=== PATIENT | male | born 1955 | race Two or more races ===

== ENCOUNTER 2024-12-01 22:05 | Emergency (ER) | payer OTHER ==
[~2024-12-01] VITALS: Ht 177.8 cm; Wt 91.0 kg
--- NOTE | 2024-12-01 23:53 | DVH ---
EXAMINATION: XY R RIB XRAY INDICATION: right rib pain COMPARISON: None TECHNIQUE: Frontal view of the chest and 2 views of the right ribs history FINDINGS/ IMPRESSION: Mildly displaced acute traumatic fracture of the right 7th lateral rib. No pneumothorax.
[2024-12-02] MEDS ORDERED: ACE3T PO ×2 (00:11→00:12)
--- NOTE | 2024-12-02 00:14 | ED.PDOC ---
Back pain HPI HPI Comments 69-year-old male presents to ER with complaints of right rib pain x2 days. Patient presents via EMS, reporting that he slipped on water while walking 2 days ago and landed on his right side onto cement and has since been experiencing 10/10 right sided rib pain. Denies head injury/LOC. Denies use of medications for current symptoms and presents to ER in no distress with vitals stable. Denies shortness of breath, chest pain, nausea/vomiting, skin changes, abdominal pain or any further symptoms/complaints Chief Complaint: Fall Injury Time Seen by MD: 22:36 Primary Care Provider: UNKNOWN Reviewed Notes: Nurses Notes, Medications, Allergies Allergies: Coded Allergies: NO KNOWN ALLERGIES (Unverified , 12/02/24) Home Meds Active Scripts Acetaminophen W/ Codeine (Tylenol W/Cod #3) 1 Tab Tb, 1 TAB PO Q6HPRN, #10 TAB 0 Refills Prov:ANGIE LAL 12/02/24 Information Source: Patient Mode of Arrival: EMS Past Medical History PAST MEDICAL HISTORY: CVA, High Lipids, HTN Past Medical History (Other): 2015- TBI Surgical History: Denies all surgeries Family History Family History: Unknown Social History Smoker: Non-Smoker Alcohol: Denies ETOH Use Drugs: Denies Drug Use Lives In: Home Constitutional: denies: chills, diaphoresis, fatigue, fever, malaise, sweats, weakness, others EENTM: denies: blurred vision, double vision, ear bleeding, ear discharge, ear drainage, ear pain, ear ringing, eye pain, eye redness, hearing loss, mouth pain, mouth swelling, nasal discharge, nose bleeding, nose congestion, nose pain, photophobia, tearing, throat pain, throat swelling, voice changes, others Respiratory: denies: cough, hemoptysis, orthopnea, SOB at rest, shortness of breath, SOB with excertion, stridor, wheezing, others Cardiovascular: denies: chest pain, dizzy spells, diaphoresis, Dyspnea on exertion, edema, irregular heart beat, left arm pain, lightheadedness, palpitations, PND, syncope, others Gastrointestinal: denies: abdomen distended, abdominal pain, blood streaked bowels, constipated, diarrhea, dysphagia, difficulty swallowing, hematemesis, melena, nausea, poor appetite, poor fluid intake, rectal bleeding, rectal pain, vomiting, others Genitourinary: denies: burning, dysuria, flank pain, frequency, hematuria, incontinence, penile discharge, penile sore, pain, testicle pain, testicle swelling, urgency, others Neurological: denies: dizziness, fainting, headache, left sided numbness, left sided weakness, numbness, paresthesia, pre-existing deficit, right sided numbness, right sided weakness, seizure, speech problems, tingling, tremors, weakness, others Musculoskeletal: reports: others (As stated in HPI) Integumetry: denies: bruises, change in color, change in hair/nails, dryness, laceration, lesions, lumps, rash, wounds, others Allergic/Immunocompromised: denies: Difficulty Healing, Frequent Infections, Hives, Itching, others Hematologic/Lymphatic: denies: anemia, blood clots, easy bleeding, easy bruising, swollen glands, others Endocrine: denies: excessive hunger, excessive sweating, excessive thirst, excessive urination, flushing, intolerance to cold, intolerance to heat, unexplained weight gain, unexplained weight loss, others Psychiatric: denies: anxiety, bipolar disorder, depression, hopeless, panic disorder, schizophrenia, sleepless, suicidal, others Physical Exam General Appearance: No Apparent Distress HEENT: Normal ENT Inspection, PERRL/EOMI, Pharynx Normal, TMs Normal Neck: Full Range of Motion, Non-Tender, Normal Respiratory: Lungs Clear, No Accessory Muscle Use, No Respiratory Distress, Normal Breath Sounds, Other (TTP to region of right lateral 7th rib noted. No crepitus/flail chest/skin changes noted) Cardiovascular: No Murmur, No Gallop, Regular Rate/Rhythm Breast Exam: Deferred Gastrointestinal: Non Tender, No Pulsatile Mass, Soft Genitalia: Deferred Pelvic: Deferred Rectal: Deferred Extremities: Normal capillary refill, Normal range of motion Neurologic: Alert, No Motor Deficits, Normal Affect, Normal Mood, No Sensory Deficits Cerebellar Function: Normal Reflexes: Normal Skin: Dry, Normal Color, Warm Peripheral Pulses: 2+ carotid (R), 2+ carotid (L), 2+ Radial (R), 2+ Radial (L), 2+ Brachial (R), 2+ Brachial (L) Lymphatic: No Adenopathy Was a procedure done? Was a procedure done?: No Sedation Sedation?: No Back Pain Differential Dx Differential Diagnosis: Fracture, Other (Pneumothorax, [place]) X-Ray, Labs, Meds, VS Vital Signs Date Time Temp Pulse Resp B/P (MAP) Pulse Ox O2 Delivery O2 Flow Rate FiO2 12/01/24 22:25 98.2 76 18 129/78 (95) 100 98.2 Current Medications Medications (Trade) Dose Ordered Sig/Julián Route Start Time Stop Time Status Last Admin Acetaminophen/ Hydrocodone Bitart ([place] 10/325MG Tab) 1 tab ONCE ONCE PO 12/01/24 23:00 12/01/24 23:01 DC 12/02/24 00:34 Ondansetron HCl (Zofran Po) 4 mg ONCE ONCE PO 12/01/24 23:00 12/01/24 23:01 DC 12/02/24 00:33 PATIENT: JORDANA CERVANTES ACCT: [id number] UNIT: [id number] : 1955 LOC: ER ROOM / BED: / AGE / SEX: 69 / M ADM STATUS: REG ER SERVICE 35 ORDERING PHYSICIAN: ANGIE LAL PROCEDURE(s): RRIBS - R RIB XRAY REASON: right rib pain ORDER NUMBER(s): [id number], ACCESSION NUMBER(s): [id number] EXAMINATION: XY R RIB XRAY INDICATION: right rib pain COMPARISON: None TECHNIQUE: Frontal view of the chest and 2 views of the right ribs history FINDINGS/ IMPRESSION: Mildly displaced acute traumatic fracture of the right 7th lateral rib. No pneumothorax. ATED BY: JOSE THOMSON MD DICTATED DATE/TIME: 12/01/242350 SIGNED BY: JOSE THOMSON MD SIGNED DATE/TIME: 12/01/242350 CC: Right rib x-ray reviewed [place] 10/325 mg p.o. ordered Zofran 4 mg p.o. ordered Patient denied any shortness of breath/chest pain during ER visit, reported improvement in symptoms, able to cough/clear secretions and in no distress prior to discharge Advised on rest/ no strenuous activity Advised to follow up with PCP in 1-2 days Patient verbalized understanding and agreeable with current plan of care Advised to return to ER immediately if symptoms worsen Images Reviewed?: Images reviewed and evaluated by me Time of 1ST Reevaluation: 22:36 Reevaluation 1ST: N/A Patient Education/Counseling: Diagnosis, Treatment, Prognosis, Need For Follow Up Family Education/Counseling: No Family Present SEPSIS Sepsis Screen Date sepsis recognized/suspect: Dec 01, 2024 Time Sepsis recognized/suspect: 2209 Recent Procedure: No On Antibiotic Therapy: No Respiratory Rate >20: No Heart Rate >90: No Temp<36 C (96.8 F) or >38.3 C: No SBP <90 or MAP <65 mmHG: No New Acute Mental Status Change: No Is the patient on CPAP, BIPAP,: No Physician Orders R Rib Xray (12/01/24 22:36) Vital Signs Date Time Temp Pulse Resp B/P (MAP) Pulse Ox O2 Delivery O2 Flow Rate FiO2 12/01/24 22:25 98.2 76 18 129/78 (95) 100 98.2 Medications Medications Dose Ordered Sig/Julián Route Start Time Stop Time Status Last Admin Dose Admin Acetaminophen/ Hydrocodone Bitart 1 tab ONCE ONCE PO 12/01/24 23:00 12/01/24 23:01 DC 12/02/24 00:34 Ondansetron HCl 4 mg ONCE ONCE PO 12/01/24 23:00 12/01/24 23:01 DC 12/02/24 00:33 Departure 1 Departure Time of Disposition: 00:02 Impression: Primary Impression: Right rib fracture Qualified Codes: S22.31XA - Fracture of one rib, right side, initial encounter for closed fracture Disposition: 01 HOME / SELF CARE / HOMELESS Condition: Stable e-Prescriptions Acetaminophen W/ Codeine (Tylenol W/Cod #3) 1 Tab Tb 1 TAB PO Q6HPRN, #10 TAB 0 Refills Prov: ANGIE LAL 12/02/24 Discharged With: Friend Critical Care Note Critical Care Time?: No Stability Stability form required: No Heart Score Heart Score: Heart Score Response (Comments) Value History N/A 0 EKG N/A 0 Age N/A 0 Risk Factors N/A 0 Troponin N/A 0 Total 0 ANGIE LAL Dec 02, 2024 00:14
[2024-12-02] MEDS: ONDANSETRON ODT 4 MG TAB PO ONE (00:33)
[2024-12-02] MEDS: HYDROcodone-ACET 10/325MG TAB PO ONE (00:34)
[2024-12-02 00:43] VITALS: BP 129/78; PULSE 76; RESP 18; TEMP 98.2; O2SAT 100
== END 2024-12-02 00:45 | disposition home or self-care (01) ==
LOC: ER 22:05 → EDBD 22:05 → ER 12-02 00:45
DX: S22.31XA Fracture of one rib, right side, initial encounter for closed fracture (principal); E78.5 Hyperlipidemia, unspecified; I10 Essential (primary) hypertension; Z86.73 Personal history of transient ischemic attack (TIA), and cerebral infarction without residual deficits; Z79.899 Other long term (current) drug therapy; W01.0XXA Fall on same level from slipping, tripping and stumbling without subsequent striking against object, initial encounter; Y93.01 Activity, walking, marching and hiking; Y92.89 Other specified places as the place of occurrence of the external cause; Y99.8 Other external cause status
CPT/HCPCS: 71101; 82947; 99283; Q0162